=== PATIENT | female | born 1965 | race Caucasian/White ===

== ENCOUNTER 2018-01-23 21:20 | Emergency (ER) | payer OTHER, MEDICAID ==
[~2018-01-23] VITALS: Ht 157.5 cm; Wt 54.4 kg
[2018-01-23 21:39] VITALS: BP 124/88
== END 2018-01-24 01:58 | disposition left against medical advice (07) ==
LOC: ER 21:20
DX: R07.81 Pleurodynia (principal); Z53.21 Procedure and treatment not carried out due to patient leaving prior to being seen by health care provider
CPT/HCPCS: 71101

== ENCOUNTER 2018-01-24 16:06 | Emergency (ER) | payer OTHER, MEDICAID ==
[~2018-01-24] VITALS: Ht 157.5 cm; Wt 57.6 kg
[2018-01-24 16:28] VITALS: BP 121/74
[2018-01-24] MEDS ORDERED: KETOROLAC TROMETH 30 MG/ML 1ML VIAL IM ONE (19:45)
[2018-01-24] MEDS ORDERED: HYDROcodone-ACET 5/325MG TAB PO ONE (19:45)
[2018-01-24] MEDS ORDERED: HYDROcodone-ACET 5/325MG TAB ONE (20:05)
[2018-01-24] MEDS ORDERED: KETOROLAC TROMETH 60MG/2ML VIAL IM ONE (20:06)
== END 2018-01-24 20:44 | disposition home or self-care (01) ==
LOC: ER 16:06 → EDBD 16:06 → ER 20:44
DX: S82.62XA Displaced fracture of lateral malleolus of left fibula, initial encounter for closed fracture (principal); F17.290 Nicotine dependence, other tobacco product, uncomplicated; W01.0XXA Fall on same level from slipping, tripping and stumbling without subsequent striking against object, initial encounter; Y93.89 Activity, other specified; Y99.8 Other external cause status; Y92.89 Other specified places as the place of occurrence of the external cause
CPT/HCPCS: 29515; 73600; 73620; 96372; 99284; J1885

== ENCOUNTER 2018-01-30 05:50 | Inpatient (IN) | payer OTHER, MEDICAID ==
[~2018-01-30] VITALS: Ht 157.5 cm; Wt 64.6 kg
[2018-01-30 07:33] LABS: Basophils # (auto) 0.1 uL; Eosinophils # (auto) 0.1 uL; Monocytes # (auto) 0.3 uL; Neutrophils # (auto) 2.3 uL
[2018-01-30 07:36] LABS: Basophils % (auto) 1.4 % (0.0-2.0); Eosinophils % (auto) 1.7 % (0.0-7.0); Hematocrit 34.5 % (36.0-46.0); Hemoglobin 11.8 g/dL (12.2-16.2); Lymphocytes # (auto) 1.3 uL; Mean Corpuscular Hemoglobin 35.9 pg (28.0-32.0); Mean Corpuscular Hgb Conc. 34.3 g/dL (32.0-36.0); Mean Corpuscular Volume 104.7 fL (80.0-100.0); Monocytes % (auto) 8.4 % (0.0-12.0); Neutrophils % (auto) 55.5 % (37.0-80.0); Nucleated Red Blood Cells % 0.2 %; Platelet Count (auto) 306 10^3/uL (140-450); Red Blood Cells 3.29 10^6/uL (4.0-5.20); Red Cell Distribution Width 13.2 % (11.8-14.3)
[2018-01-30 07:38] LABS: INR 0.87 (0.9-1.15); Partial Thromboplastin Time 24.2 sec (23.78-33.04); Prothrombin Time 9.4 sec (9.27-12.13)
[2018-01-30 07:53] LABS: Albumin 3.4 g/dL (3.4-5.0); BUN/Creatinine Ratio 17.6; Bilirubin, Total 0.3 mg/dL (0.2-1.0); Total Protein 6.8 g/dL (6.4-8.2)
[2018-01-30] MEDS ORDERED: ceFAZolin 1GM/50ML 50 ML IV ONE (08:06)
[2018-01-30] MEDS ORDERED: fentaNYL CITRATE 100 MCG/2 ML VL ONE ×2 (08:48→09:39)
[2018-01-30] MEDS ORDERED: MIDAZOLAM HCL 1MG/1ML-2 ML VIAL ONE (08:48)
[2018-01-30] MEDS ORDERED: ePHEDrine SULFATE 50 MG/ML AMP ONE (08:49)
[2018-01-30] MEDS ORDERED: LIDOCAINE 2% (LOCAL ANESTH.) PF 5ml SDV ONE (08:49)
[2018-01-30] MEDS ORDERED: PROPOFOL 10 MG/ML 20 ML IV ONE (08:49)
[2018-01-30] MEDS ORDERED: diphenhdrAMINE HCL 50 MG/1 ML VL ONE (08:49)
[2018-01-30] MEDS ORDERED: METOCLOPRAMIDE HCL 5MG/ml INJ 2ml VIAL ONE (08:49)
[2018-01-30] MEDS ORDERED: DEXAMETHASONE SOD PHOS 10MG/1ML VIAL INJ ONE (08:49)
[2018-01-30] MEDS ORDERED: SODIUM CHLORIDE LOCK 10 ML ONE (08:49)
[2018-01-30] MEDS ORDERED: LIDOCAINE W/ EPINEPHRINE 2% INJ 20ML VIAL ONE (08:55)
[2018-01-30] MEDS ORDERED: BUPIVACAINE HCL 50 ML ONE (08:56)
[2018-01-30] MEDS ORDERED: METOPROLOL TARTRATE 1MG/1ML-5ML VIAL IV ONE (09:49)
[2018-01-30] MEDS ORDERED: fentaNYL CITRATE 100 MCG/2 ML VL IV ONE (11:00)
[2018-01-30] MEDS ORDERED: hydrALAZINE HCL 20 MG/ML VL IV PRN (11:00)
[2018-01-30] MEDS ORDERED: ePHEDrine SULFATE 50 MG/ML AMP IV PRN (11:00)
[2018-01-30] MEDS ORDERED: NALOXONE HCL 0.4 MG/ML VIAL IV PRN (11:00)
[2018-01-30] MEDS ORDERED: KETOROLAC TROMETH 30 MG/ML 1ML VIAL IV ONE (11:00)
[2018-01-30] MEDS ORDERED: LABETALOL HCL 5 MG/ML 4ML SYRINGE IV PRN (11:00)
[2018-01-30] MEDS ORDERED: ONDANSETRON HCL 4 MG/2 ML VIAL IV ONE (11:00)
[2018-01-30] MEDS: HYDROmorphone HCL 2 MG/ML VL IV PRN ×4 (11:09→20:04)
[2018-01-30] MEDS ORDERED: ONDANSETRON HCL 4 MG/2 ML VIAL IV PRN (11:15)
[2018-01-30] MEDS ORDERED: MORPHINE SULF INJ 2 MG/ML SYRINGE 1ML IV PRN (11:15)
[2018-01-30] MEDS ORDERED: KETOROLAC TROMETH 30 MG/ML 1ML VIAL IV PRN (11:15)
[2018-01-30] MEDS ORDERED: HYDROcodone-ACET 10/325MG TAB PO PRN (11:15)
[2018-01-30] MEDS ORDERED: NITROGLYCERIN 0.4 MG SL TAB SL PRN (11:15)
[2018-01-30] MEDS ORDERED: ceFAZolin 1GM/50ML 50 ML IV SCH (12:00)
[2018-01-30 13:37] VITALS: BP 128/81
[2018-01-30 13:45] VITALS: BP 120/81
[2018-01-30 16:00] VITALS: BP 123/81
[2018-01-30 16:42] LABS: Alcohol, Urine < 3.0 mg/dL (0-5); Amphetamine Screen, Urine NEGATIVE (NEGATIVE); Barbiturate Scree,Urine NEGATIVE (NEGATIVE); Benzodiazephine Screen, Urine POSITIVE (NEGATIVE); Cannabinoid Screen, Urine NEGATIVE (NEGATIVE); Cocaine Screen, Urine NEGATIVE (NEGATIVE); Opiate Scree,Urine NEGATIVE (NEGATIVE); Phencyclidine Screen, Urine NEGATIVE (NEGATIVE)
[2018-01-30] MEDS: chlordiazePOXIDE HCL 5 MG CAP PO PRN ×2 (17:17→23:33)
[2018-01-30] MEDS: MULTIPLE VITAMINS W/ MINERALS TAB PO SCH (17:17)
[2018-01-30] MEDS ORDERED: TRAZ50TA2 PO (18:32)
[2018-01-30] MEDS: ceFAZolin 1GM/50ML 50 ML IV SCH (21:15)
[2018-01-30 22:00] VITALS: BP 120/68
[2018-01-30] MEDS ORDERED: traZODone HCL 50 MG TAB PO ONE (22:30)
[2018-01-31] MEDS: HYDROmorphone HCL 2 MG/ML VL IV PRN ×8 (00:20→22:37)
[2018-01-31] MEDS: ceFAZolin 1GM/50ML 50 ML IV SCH ×3 (03:12→16:27)
[2018-01-31 04:55] VITALS: BP 118/76
[2018-01-31] MEDS: chlordiazePOXIDE HCL 5 MG CAP PO PRN (08:00)
[2018-01-31 09:00] VITALS: BP 129/76
[2018-01-31] MEDS: MULTIPLE VITAMINS W/ MINERALS TAB PO SCH (10:36)
[2018-01-31] MEDS ORDERED: NICOTINE 21MG/24 HR TOPICAL PATCH TD ONE (11:00)
[2018-01-31] MEDS ORDERED: B-COMPLEX W/ C & FOLIC ACID(NEPHROVITE TAB) PO ONE (11:00)
[2018-01-31] MEDS: CALCIUM CARB 500 MG CHEW TAB PO SCH ×2 (12:00→18:00)
[2018-01-31 13:00] VITALS: BP 130/74
[2018-01-31 17:00] VITALS: BP 121/78
[2018-01-31] MEDS: FERROUS SULFATE 325 MG TAB PO SCH (18:35)
[2018-01-31 22:00] VITALS: BP 143/87
[2018-01-31] MEDS ORDERED: traZODone HCL 50 MG TAB PO SCH (22:00)
[2018-02-01] MEDS: HYDROmorphone HCL 2 MG/ML VL IV PRN ×2 (02:37→08:39)
[2018-02-01 05:00] VITALS: BP 131/80
[2018-02-01] MEDS: CALCIUM CARB 500 MG CHEW TAB PO SCH ×3 (08:12→18:09)
[2018-02-01] MEDS: FERROUS SULFATE 325 MG TAB PO SCH ×2 (08:12→18:09)
[2018-02-01 08:26] VITALS: BP 142/76
[2018-02-01] MEDS ORDERED: B-COMPLEX W/ C & FOLIC ACID(NEPHROVITE TAB) PO SCH (10:00)
[2018-02-01] MEDS ORDERED: CHOLECALCIFEROL (VITD3) 1,000 UNIT TAB PO SCH (10:00)
[2018-02-01] MEDS ORDERED: NICOTINE 21MG/24 HR TOPICAL PATCH TD SCH (10:00)
[2018-02-01] MEDS: MULTIPLE VITAMINS W/ MINERALS TAB PO SCH (10:16)
[2018-02-01 12:05] VITALS: BP 127/75
[2018-02-01] MEDS: OXYCODONE W/ ACETAMINOPHEN 5/325MG TABLET PO PRN ×2 (13:46→17:29)
[2018-02-01 16:58] VITALS: BP_SYST 120; BP_SYST 127; BP_DIAS 75; BP_DIAS 81
== END 2018-02-01 23:14 | disposition home or self-care (01) | DRG 494 ==
LOC: SUR 05:50 → TELE-EAST 13:37 → EAST 13:39
PROVIDERS: ADMIT Orthopaedic Surgery; ATTEND Internal Medicine
PROC: 0QSK04Z Reposition Left Fibula with Internal Fixation Device, Open Approach (ICD-10-PCS; 2018-01-30)
PROC: 0SSG0ZZ Reposition Left Ankle Joint, Open Approach (ICD-10-PCS; 2018-01-30)
PROC: 0QSH04Z Reposition Left Tibia with Internal Fixation Device, Open Approach (ICD-10-PCS; principal; 2018-01-30 08:58)
DX: M84.472A Pathological fracture, left ankle, initial encounter for fracture (principal); F41.9 Anxiety disorder, unspecified; S93.422A Sprain of deltoid ligament of left ankle, initial encounter; F17.200 Nicotine dependence, unspecified, uncomplicated; M85.872 Other specified disorders of bone density and structure, left ankle and foot; W18.39XA Other fall on same level, initial encounter; Y92.009 Unspecified place in unspecified non-institutional (private) residence as the place of occurrence of the external cause; Y93.89 Activity, other specified
CPT/HCPCS: 36415; 71045; 71250; 73600; 74176; 76000; 80053; 80307; 85025; 85610; 85730; 93005; C1713; J0690; J1100; J1885; J2001; J2250; J2704; J3490